=== PATIENT | female | born 1955 | race Caucasian/White ===

== ENCOUNTER → 2016-02-21 | Outpatient (CLI) | payer OTHER ==
[~2016-02-21] MED LIST: ATEN-155 PO; CA C1TAB66 PO; CYCL10TA9 PO; LISI40TA PO; NAPR-243 PO; POTA99TA7 PO
--- OUTSIDE RECORDS SUMMARY | 2016-02-21 10:42 | XMS REPORT ---
Author AGUS [facility] eClinicalWorks Address Unknown Phone Unavailable Care Team Providers Care Master Police Detective Name Role Phone AGUS [facility] CP Unavailable Allergies, Adverse Reactions, Alerts Substance Reaction Event Type Erythromycin Base Info Not Available Drug Allergy Laquer Info Not Available Non Drug Allergy Problems Problem Type Condition Code Onset Dates Condition Status Assessment Diabetes E11.9 Active Problem Screening for malignant neoplasm of the cervix V76.2 Active Problem Special screening examination, human papillomavirus [HPV] V73.81 Active Assessment HTN (hypertension) I10 Active Assessment Neuropathy G62.9 Active Problem Neuropathy G62.9 Active Problem HTN (hypertension) I10 Active Problem Diabetes E11.9 Active Problem Routine general medical examination at health care facility V70.0 Active Problem Routine gynecological examination V72.31 Active Problem Lumbago of lumbar region with 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 Active Problem Diabetes type 2, uncontrolled 250.02 Active Medications Medication Code System Code Instructions Start Date End Date Status Dosage MetFORMIN HCl ER [facility] [address]-32 500 MG Orally 2 times a day TAKE ONE TABLET Atenolol [facility] [address]-56 50 MG Orally 2 times a day 1.5 tablet by Oral route 2 times per day Lisinopril [facility] [address]-55 40 MG Orally 2 times a day 1 tablet Furosemide [facility] [address]-60 20 MG Orally Once a day take 1 tablet (20 mg) by oral route once daily Atorvastatin Calcium [facility] [address]-58 80 MG Orally Once a day TAKE ONE TABLET BY MOUTH DAILY Meloxicam [facility] [address]-16 15 MG Orally Once a day Feb 22, 2015 1 tablet Procedures Procedure Coding System Code Date MICROALBUMIN, SEMIQUANT CPT-4 84400 Feb 22, 2015 Office Visit, Est Pt., Level 4 CPT-4 58404 Feb 22, 2015 GLYCATED HEMOGLOBIN TEST CPT-4 00502 Feb 22, 2015 Vital Signs Date/Time: Feb 22, 2015 Temperature 97.1 F Weight 174.1 lbs Height 60 in BMI 34.00 Index Blood Pressure Diastolic 70 mmHg Blood Pressure Systolic 130 mmHg Cardiac Monitoring Heart Rate 64 bpm Results Name Result Date Reference Range Unit Abnormality Flag A1C (IN HOUSE) ----A1C IN HOUSE 7.2% 20150222 4.30 - 5.6 % ----Previous A1c 6.9% 20150222 ----Lot # [id number] ----Exp date 20150222 MICROALBUMIN, URINE (IN HOUSE) ----CRE 100 mg/dL 20150222 ----ALB 10 mg/L 20150222 ----A:C (IN HOUSE) <30mg/g 20150222 ----Clarity clear 20150222 ----Color yellow 20150222 ----Lot # [id number] ----Exp date 20150222 ----MICROALBUMIN Normal 20150222 Summary Purpose eClinicalWorks Submission
--- NOTE | 2016-02-21 12:39 | Diagnostic Imaging Report ---
AP and frog lateral views of the left hip. INDICATION: Left hip pain. FINDINGS: There is no fracture, dislocation or radiopaque foreign body. There is mild joint space narrowing without significant osteophyte formation or subchondral sclerosis. There is ossification along the greater trochanter may relate to adjacent ligaments or tendon insertion site possibly from prior injury. IMPRESSION: Mild degenerative change. Dictated by: Dictated on workstation # [id number]
--- NOTE | 2016-02-21 13:13 | Diagnostic Imaging Report ---
Three views of the lumbar spine. FINDINGS: There is satisfactory alignment of the posterior spinal line. The vertebral body heights are preserved. There is a mild disc height loss at the L3-L4 level. The sacroiliac joints appear unremarkable. There are surgical clips in the upper right abdomen. IMPRESSION: Mild degenerative changes. Dictated by: Dictated on workstation # [id number]
== END ==
LOC: RAD 10:38
PROVIDERS: ATTEND Surgery
DX: M54.5 Low back pain (principal); M25.552 Pain in left hip; M06.9 Rheumatoid arthritis, unspecified
CPT/HCPCS: 72100; 73502